=== PATIENT | male | born 1975 | race Caucasian/White ===

== ENCOUNTER 2018-05-02 12:31 | Emergency (ER) | payer BC, SELFPAY ==
[2018-05-02 12:36] VITALS: BP 171/99; PULSE 87; RESP 16; TEMP 36.9; O2SAT 96
[2018-05-02 13:00] VITALS: BP 184/112
[2018-05-02 13:01] VITALS: BP 180/100; PULSE 101
[2018-05-02 13:03] VITALS: RESP 16
[2018-05-02 13:05] VITALS: BP 173/110; BP 184/112; PULSE 101; PULSE 95
--- NOTE | 2018-05-02 13:40 | W.ED.GENAD ---
Discharge Plan Disposition Patient Disposition: HOME Condition: Good Discharge Details Chief Complaint: Dizzy/Sync Clinical Impression: Dizziness, Dehydration Primary Care Provider: Sameer Almaguer ED Provider: Janet Lynch Home Meds and New Rx's Prescriptions: Continue omeprazole magnesium [Prilosec OTC] 20 MG tablet,delayed release (DR/EC) 20 mg PO DAILY RF: 0 ibuprofen [Advil Liqui-Gel] 200 MG capsule 200 mg PO PRN PRNRF: 0 Discharge Instructions Instructions: Dehydration (ED), Dizziness (ED) Additional Instructions: Drink plenty fluids and get plenty of rest. Refrain from excessive daily alcohol use. You should receive a call from care management regarding follow-up with a primary care doctor for reevaluation and for outpatient MRI brain for reassessment of a nonspecific calcification noted on the CAT scan of your head today. Return immediately to the emergency department any worsening or new concerning symptoms. Discharge Data Discharge Date/Time-TO BE ENTERED AT DEPARTURE: 05/02/18 18:47 Discharge Physician: Janet Lynch Medical Decision Making <Janet Lynch DO - Last Filed: 05/02/18 22:41> Please see Dr. Sally Akbar's note for initial presentation, exam and plan. Patient is a 42 -year-old male history of GERD who presented with dizziness described as lightheadedness since yesterday. Also admitted to ringing in his left ear. He denied headache, neck pain, spinning sensation, fever, recent illness, vomiting or diarrhea. Patient admitted to drinking a sixpack of beer daily, and that he drank much more over the weekend. Upon endorsement, plan was for follow-up on EKG, reassessment after fluids, ambulation as well as CT head. Labs reviewed and note a white blood cell count of 13.25. Anion gap 12.3. Mild elevation of AST and ALT likely due to daily alcohol use. It was thought that his symptoms are likely due to dehydration. 1800 --IV fluids finished and patient is requesting to go home. Patient states he feels much better. Patient ambulated around the ED and has no c/o of dizziness, tinnitus and appears in no acute distress. EKG notes a rate of 65, sinus, incomplete right bundle branch block, left anterior fascicular block, T wave inversion in V1 and V2, no acute ST elevation or depression, QTc 432, QRS 100. No old EKG to compare. Chest x-ray negative. CT had noted a nonspecific 0.8 cm calcification anterior to the interpedicular fossa of unknown etiology. They recommended further evaluation with MRI brain. These results were discussed with patient. These may be likely incidental as patient has no complaints of headache, vomiting, no focal deficits. Patient states he has been seen by [facility] in the past. He is instructed to call them tomorrow morning to schedule follow-up appointment for reevaluation. Patient instructed to return here immediately with any worsening or new concerning symptoms. <Barbara Akbar MD - Last Filed: 05/04/18 10:56> Yasmeen Calix is a 42 y/o man with h/o GERD, heavy etoh use presenting to the emergency department with lightheadedness that only occurs while standing since yesterday morning, after he drank heavily two nights ago. Pt is very well and non-toxic appearing. Benign cardiopulmonary and neuro exams. Exam/hx not c/w PE, ACS, sepsis, acute aortic pathology, CVA, infection. Concern for dehydration, orthostatic lightheadedness, metabolic/lyte derangement, other. Doubt arrhythmia, given symptoms currently occuring with standing with no change in heart rhythm and symptoms resolve immediately when seated. Doubt intracranial process, given concurrent HTN will obtain CT head, also plan for screening labs, IVF hydration, EKG, CXR, CT head. Will monitor and reassess. Pt signed out to Dr. Lynch at time of shift change with CXR, CT head, EKG, reassessment pending. Medical Records Medical records reviewed: Yes I reviewed the patient's medical records. Lab Data Lab results reviewed: Yes I reviewed the patient's lab results. HPI <Janet Lynch DO - Last Filed: 05/02/18 22:41> General Date/Time Provider Initiated Documentation: 05/02/18 13:26. Related Data Home Medications Medication Instructions Recorded Confirmed ibuprofen [Advil Liqui-Gel] 200 mg PO PRN PRN 12/27/14 05/02/18 omeprazole magnesium [Prilosec OTC] 20 mg PO DAILY 12/27/14 05/02/18 Allergies Allergy/AdvReac Type Severity Reaction Status Date / Time No Known Allergies Allergy Unverified 05/02/18 12:38 <Barbara Akbar MD - Last Filed: 05/04/18 10:56> General Mode of arrival: ambulatory. Limitations to Documentation: no limitations. Information obtained by: patient, RN notes reviewed and old records reviewed. HPI Narrative: Yasmeen Calix is a 42 y/o man with h/o GERD presenting to the emergency department with lightheadedness with standing. Pt reports that symptoms began yesterday morning. He states that he typically drinks 6 beers per night, but two nights ago drank significantly more than that. Pt reports that yesterday morning when he woke up, he noticed that he felt lightheaded while he was standing. When he sat down, he would feel immediately improved and at baseline. Pt reports that this morning he felt much better than yesterday, but when he went to work he was standing for a pronged period and felt lightheaded again, which prompted him to come to ED. No syncope or fall, no LOC. He denies any accompanying symptoms: no pain, no palpitations, no n/v/d, no SOB, no cough, no weakness, no n/t. Feels otherwise in his usual state of health. He is seated on bed and states that he is currently asymptomatic. Has been eating and drinking normally. No recent illness. No recent travel. General Stated Complaint: Dizzy/Sync GANESH: 3 <Barbara Akbar MD - Last Filed: 05/04/18 10:56> Review of Systems Constitutional: denies fevers Eyes: denies eye pain ENT: denies facial pain, dental pain, sore throat Cardiovascular: denies chest pain, edema, reports lightheadedness Respiratory: denies SOB, cough GI: denies abdominal pain, vomiting, diarrhea : denies flank pain MSK: denies back pain, neck pain, arthralgias, myalgias Skin: denies rash Neuro: denies headaches, n/t, focal weakness <Barbara Akbar MD - Last Filed: 05/04/18 10:56> Narrative Exam Narrative: Constitutional: well and [id number], pleasant, conversing normally HENT: head atraumatic, normocephalic normal inspection, mucous membranes moist Eyes: conjunctiva normal, sclera normal, pupils 3mm b/l Neck: no stridor, normal ROM, trachea midline Chest: normal inspection Resp: normal work of breathing, LCTAB Cardio: normal rate, normal rhythm, no murmur appreciated Back: normal inspection, no rash Skin: warm, dry, normal color, no rash Neuro: alert, not altered, grossly non-focal, normal tone Ext: no edema, no posteror calf TTP Psych: normal mood, normal affect, normal behavior <Barbara Akbar MD - Last Filed: 05/04/18 10:56> Vital Signs Temperature 36.9 C 05/02/18 12:36 Pulse 87 05/02/18 12:36 Respiratory Rate 16 05/02/18 12:36 Blood Pressure 171/99 H 05/02/18 12:36 Pulse Oximetry 96 05/02/18 12:36 Temperature 36.9 C 05/02/18 12:36 Temperature Source Temporal Artery Scan 05/02/18 12:36 Pulse 95 H 05/02/18 13:05 Respiratory Rate 16 05/02/18 13:03 Respiratory Effort 05/02/18 13:03 Respiratory Depth Normal 05/02/18 13:03 Respiratory Pattern Normal 05/02/18 13:03 Blood Pressure 173/110 H 05/02/18 13:05 Blood Pressure Position Sitting 05/02/18 12:36 Pulse Oximetry 96 05/02/18 12:36 Oxygen Delivery Method Room Air 05/02/18 12:36 Oxygen Flow Rate 0 05/02/18 12:36 Pain Level 0 05/02/18 12:36 Sign Out <Jnaet Lynch DO - Last Filed: 05/02/18 22:41> Sign Out Data: Sign Out Comment: Patient signed out to Dr. Janet Lynch at time of shift change with EKG, final chest x-ray reading, second liter of fluid, CT head, reassessment pending. Last updated by Barbara Akbar MD at 05/02/18 16:27
[2018-05-02 15:17] LABS: Abs Immature Grans 0.03 k/cumm (0.0-0.09); Absolute Basophil Count 0.11 k/cumm (0.0-0.2); Absolute Eosinophil Count 0.21 k/cumm (0.0-0.7); Absolute Lymphocyte Count 2.33 k/cumm (1.2-3.4); Absolute Monocyte Count 1.01 k/cumm (0.11-0.7); Basophils % 0.8; Eosinophils % 1.6; HCT 49.9 % (40.0-50.0); Immature Grans % 0.2; Lymphocytes % 17.6; Mean Corp. HGB Concentration 34.1 g/dL (32.0-36.0); Mean Corpuscular Hemoglobin 29.2 pg (27.0-33.0); Mean Corpuscular Volume 85.6 fL (80-95); Mean Platelet Volume 9.7 fL (8.0-11.0); Monocytes % 7.6; Neutrophils % 72.2; Platelet Count 273 x1000/uL (130-400); RBC 5.83 m/cumm (4.50-6.00); RBC Distribution Width 15.9 % (11.8-14.1); White Blood Cell Count 13.25 k/cumm (4.4-10.8)
[2018-05-02 15:20] LABS: Absolute Neutrophil Count 9.57 k/cumm (1.2-6.7)
[2018-05-02 15:22] VITALS: BP 155/111
--- NOTE | 2018-05-02 15:28 | DI.RAD_ITS ---
SYMPTOMS/DIAGNOSIS: NEAR SYNCOPE CHEST X-RAY, PA AND LATERAL: No priors. The heart is normal in size. The lungs are clear. The mediastinal structures and pleura appear intact. IMPRESSION: Normal chest.
[2018-05-02 15:29] LABS: ALT 82 U/L (12-78); AST 55 U/L (15-37); Albumin 4.1 g/dL (3.4-5.0); Alkaline Phosphatase 88 U/L (46-116); Anion Gap 12.3 mmol/L (3-11); BUN 6 mg/dL (7-18); Bilirubin, Total 0.7 mg/dL (0.2-1.0); CO2 26.7 mmol/L (21.0-32.0); CREATININE 0.82 mg/dL (0.70-1.30); Calcium 9.9 mg/dL (8.5-10.1); Chloride 100 mmol/L (98-107); Glucose 87 mg/dL (70-100); Magnesium 2.1 mg/dL (1.8-2.4); Potassium 4.3 mmol/L (3.5-5.1); Sodium 139 mmol/L (136-145); Total Protein 8.9 g/dL (6.4-8.2)
[2018-05-02] MEDS: Normal Saline 1,000 ML 1000 ML IV ×2 (15:44→16:30)
--- NOTE | 2018-05-02 16:56 | DI.CT_ITS ---
SYMPTOMS/DIAGNOSIS: LIGHTHEADEDNESS, HIGH BLOOD PRESSURE CT BRAIN, NONCONTRAST: No priors. There is normal sorensen-white matter differentiation. The ventricles are intact. The basilar cisterns are patent. No intracranial hemorrhage, infarct, midline shift or mass effect is identified. There is a 0.8 cm calcification anterior to the interpeduncular fossa in the region of the basilar tip. There is mucosal thickening in the maxillary sinuses, ethmoid air cells and sphenoid sinuses. No fluid levels are seen. The mastoid air cells are well pneumatized. The calvarium is intact. IMPRESSION: 1. No acute intracranial process. 2. A 0.8 cm calcification anterior to the interpeduncular fossa. This is of uncertain clinical significance. Its proximity to the basilar tip cannot exclude an aneurysm. MRI without and with contrast should be considered for further evaluation.
--- NOTE | 2018-05-02 17:18 | DI.VRAD_ITS ---
EXAM: CT Head Without Intravenous Contrast CLINICAL HISTORY: 42 years old, male; Signs and symptoms; Other: Lightheadedness, high blood pressure TECHNIQUE: Axial computed tomography images of the head/brain without intravenous contrast. Coronal and sagittal reformatted images were created and reviewed. COMPARISON: No relevant prior studies available. FINDINGS: Brain: Nonspecific 0.8 cm calcification anterior to the interpeduncular fossa possibly within close anatomic proximity to the basilar tip. No intracranial hemorrhage or extra-axial fluid collection. No evidence of mass effect or midline shift. Arteaga-white matter differentiation is normal. Ventricles: Ventricles and sulci are normal. Bones/joints: No acute osseus lesions or fractures. Soft tissues: Unremarkable. Sinuses: Mild mucosal thickening of the maxillary sinuses. Mastoid air cells: Mastoid air cells are clear. IMPRESSION: 1. No acute intracranial findings. 2. Nonspecific 0.8 cm calcification anterior to the interpeduncular fossa of unknown etiology. Recommend further evaluation with MRI brain with and without contrast. Dictated and Authenticated by: Kenneth Solis MD. Ordering:LUCILLE LEW MD
--- NOTE | 2018-05-02 18:43 | ED.GENADUL_ITS ---
Discharge Plan Disposition Patient Disposition: HOME Condition: Good Discharge Details Chief Complaint: Dizzy/Sync Clinical Impression: Dizziness, Dehydration Primary Care Provider: Sameer Almaguer ED Provider: Janet Lynch Home Meds and New Rx's Prescriptions: Continue omeprazole magnesium [Prilosec OTC] 20 MG tablet,delayed release (DR/EC) 20 mg PO DAILY RF: 0 ibuprofen [Advil Liqui-Gel] 200 MG capsule 200 mg PO PRN PRNRF: 0 Discharge Instructions Instructions: Dehydration (ED), Dizziness (ED) Additional Instructions: Drink plenty fluids and get plenty of rest. Refrain from excessive daily alcohol use. You should receive a call from care management regarding follow-up with a primary care doctor for reevaluation and for outpatient MRI brain for reassessment of a nonspecific calcification noted on the CAT scan of your head today. Return immediately to the emergency department any worsening or new concerning symptoms. Discharge Data Discharge Date/Time-TO BE ENTERED AT DEPARTURE: 05/02/18 18:47 Discharge Physician: Janet Lynch Medical Decision Making <Janet Lynch DO - Last Filed: 05/02/18 22:41> Please see Dr. Sally Akbar's note for initial presentation, exam and plan. Patient is a 42 -year-old male history of GERD who presented with dizziness described as lightheadedness since yesterday. Also admitted to ringing in his left ear. He denied headache, neck pain, spinning sensation, fever, recent illness, vomiting or diarrhea. Patient admitted to drinking a sixpack of beer daily, and that he drank much more over the weekend. Upon endorsement, plan was for follow-up on EKG, reassessment after fluids, ambulation as well as CT head. Labs reviewed and note a white blood cell count of 13.25. Anion gap 12.3. Mild elevation of AST and ALT likely due to daily alcohol use. It was thought that his symptoms are likely due to dehydration. 1800 --IV fluids finished and patient is requesting to go home. Patient states he feels much better. Patient ambulated around the ED and has no c/o of dizziness, tinnitus and appears in no acute distress. EKG notes a rate of 65, sinus, incomplete right bundle branch block, left anterior fascicular block, T wave inversion in V1 and V2, no acute ST elevation or depression, QTc 432, QRS 100. No old EKG to compare. Chest x-ray negative. CT had noted a nonspecific 0.8 cm calcification anterior to the interpedicular fossa of unknown etiology. They recommended further evaluation with MRI brain. These results were discussed with patient. These may be likely incidental as patient has no complaints of headache, vomiting, no focal deficits. Patient states he has been seen by [facility] in the past. He is instructed to call them tomorrow morning to schedule follow-up appointment for reevaluation. Patient instructed to return here immediately with any worsening or new concerning symptoms. <Barbara Akbar MD - Last Filed: 05/04/18 10:56> Yasmeen Calix is a 42 y/o man with h/o GERD, heavy etoh use presenting to the emergency department with lightheadedness that only occurs while standing since yesterday morning, after he drank heavily two nights ago. Pt is very well and non-toxic appearing. Benign cardiopulmonary and neuro exams. Exam/hx not c/w PE , ACS, sepsis, acute aortic pathology, CVA, infection. Concern for dehydration, orthostatic lightheadedness, metabolic/lyte derangement, other. Doubt arrhythmia , given symptoms currently occuring with standing with no change in heart rhythm and symptoms resolve immediately when seated. Doubt intracranial process , given concurrent HTN will obtain CT head, also plan for screening labs, IVF hydration, EKG, CXR, CT head. Will monitor and reassess. Pt signed out to Dr. Lynch at time of shift change with CXR, CT head, EKG, reassessment pending. Medical Records Medical records reviewed: Yes I reviewed the patient's medical records. Lab Data Lab results reviewed: Yes I reviewed the patient's lab results. HPI <Janet Lynch DO - Last Filed: 05/02/18 22:41> General Date/Time Provider Initiated Documentation: 05/02/18 13:26 . Related Data Home Medications Medication Instructions Recorded Confirmed ibuprofen [Advil Liqui-Gel] 200 mg PO PRN PRN 12/27/14 05/02/18 omeprazole magnesium [Prilosec OTC] 20 mg PO DAILY 12/27/14 05/02/18 Allergies Allergy/AdvReac Type Severity Reaction Status Date / Time No Known Allergies Allergy Unverified 05/02/18 12:38 <Barbara Akbar MD - Last Filed: 05/04/18 10:56> General Mode of arrival: ambulatory . Limitations to Documentation: no limitations . Information obtained by: patient, RN notes reviewed and old records reviewed . HPI Narrative: Yasmeen Calix is a 42 y/o man with h/o GERD presenting to the emergency department with lightheadedness with standing. Pt reports that symptoms began yesterday morning. He states that he typically drinks 6 beers per night, but two nights ago drank significantly more than that. Pt reports that yesterday morning when he woke up, he noticed that he felt lightheaded while he was standing. When he sat down, he would feel immediately improved and at baseline. Pt reports that this morning he felt much better than yesterday, but when he went to work he was standing for a pronged period and felt lightheaded again, which prompted him to come to ED. No syncope or fall, no LOC. He denies any accompanying symptoms: no pain, no palpitations, no n/v/d, no SOB, no cough, no weakness, no n/t. Feels otherwise in his usual state of health. He is seated on bed and states that he is currently asymptomatic. Has been eating and drinking normally. No recent illness. No recent travel. General Stated Complaint: Dizzy/Sync GANESH: 3 <Barbara Akbar MD - Last Filed: 05/04/18 10:56> Review of Systems Constitutional: denies fevers Eyes: denies eye pain ENT: denies facial pain, dental pain, sore throat Cardiovascular: denies chest pain, edema, reports lightheadedness Respiratory: denies SOB, cough GI: denies abdominal pain, vomiting, diarrhea : denies flank pain MSK: denies back pain, neck pain, arthralgias, myalgias Skin: denies rash Neuro: denies headaches, n/t, focal weakness <Barbara Akbar MD - Last Filed: 05/04/18 10:56> Narrative Exam Narrative: Constitutional: well and [id number], pleasant, conversing normally HENT: head atraumatic, normocephalic normal inspection, mucous membranes moist Eyes: conjunctiva normal, sclera normal, pupils 3mm b/l Neck: no stridor, normal ROM, trachea midline Chest: normal inspection Resp: normal work of breathing, LCTAB Cardio: normal rate, normal rhythm, no murmur appreciated Back: normal inspection, no rash Skin: warm, dry, normal color, no rash Neuro: alert, not altered, grossly non-focal, normal tone Ext: no edema, no posteror calf TTP Psych: normal mood, normal affect, normal behavior <Barbara Akbar MD - Last Filed: 05/04/18 10:56> Vital Signs Temperature 36.9 C 05/02/18 12:36 Pulse 87 05/02/18 12:36 Respiratory Rate 16 05/02/18 12:36 Blood Pressure 171/99 H 05/02/18 12:36 Pulse Oximetry 96 05/02/18 12:36 Temperature 36.9 C 05/02/18 12:36 Temperature Source Temporal Artery Scan 05/02/18 12:36 Pulse 95 H 05/02/18 13:05 Respiratory Rate 16 05/02/18 13:03 Respiratory Effort 05/02/18 13:03 Respiratory Depth Normal 05/02/18 13:03 Respiratory Pattern Normal 05/02/18 13:03 Blood Pressure 173/110 H 05/02/18 13:05 Blood Pressure Position Sitting 05/02/18 12:36 Pulse Oximetry 96 05/02/18 12:36 Oxygen Delivery Method Room Air 05/02/18 12:36 Oxygen Flow Rate 0 05/02/18 12:36 Pain Level 0 05/02/18 12:36 Sign Out <Janet Lynch DO - Last Filed: 05/02/18 22:41> Sign Out Data: Sign Out Comment: Patient signed out to Dr. Janet Lynch at time of shift change with EKG, final chest x-ray reading, second liter of fluid, CT head, reassessment pending. Last updated by Barbara Akbar MD at 05/02/18 16:27
--- NOTE | 2018-05-03 08:49 | PDOC.ERCMPRO ---
Care Management Progress Note 05/03-Dr. Lynch requested assistance with a PCP (Dr. Almaguer) f/u in one week for dizziness, incidental finding on CT-needs MRI. Referral faxed to [facility] today.
--- NOTE | 2018-05-03 09:20 | CMPROGNOTE_ITS ---
Care Management Progress Note 05/03-Dr. Lynch requested assistance with a PCP (Dr. Almaguer) f/u in one week for dizziness, incidental finding on CT-needs MRI. Referral faxed to [facility] today.
--- NOTE | 2018-05-11 10:06 | NUR.NOTE ---
Nursing Note: Received notice that patient has an appointment with Andreea Burns at [facility] on May 18, at 1515.
== END 2018-05-02 18:47 | disposition home or self-care (01) ==
PROVIDERS: Student in an Organized Health Care Education/Training Program; Emergency Provider Physician Assistant; PCP Internal Medicine
DX: R42 Dizziness and giddiness (principal); E86.0 Dehydration; R91.8 Other nonspecific abnormal finding of lung field; F10.10 Alcohol abuse, uncomplicated
CPT/HCPCS: 36415; 80053; 93005; 96360; 99284; 70450; 71046; 83735; 85025; 93010

== ENCOUNTER 2018-07-29 21:00 | Outpatient (REF) | payer BC, SELFPAY ==
[2018-07-29 21:18] LABS: HCT 49.2 % (40.0-50.0); HGB 16.6 g/dL (13.5-17.5); Mean Corp. HGB Concentration 33.7 g/dL (32.0-36.0); Mean Corpuscular Hemoglobin 29.3 pg (27.0-33.0); Mean Corpuscular Volume 86.9 fL (80-95); Mean Platelet Volume 10.7 fL (8.0-11.0); Platelet Count 337 x1000/uL (130-400); RBC 5.66 m/cumm (4.50-6.00); RBC Distribution Width 14.9 % (11.8-14.1); White Blood Cell Count 13.54 k/cumm (4.4-10.8)
[2018-07-29 21:36] LABS: ALT 38 U/L (12-78); AST 31 U/L (15-37); Albumin 4.2 g/dL (3.4-5.0); Alkaline Phosphatase 87 U/L (46-116); BUN 9 mg/dL (7-18); Bilirubin, Total 0.5 mg/dL (0.2-1.0); CREATININE 1.06 mg/dL (0.70-1.30); Calcium 9.6 mg/dL (8.5-10.1); Chloride 102 mmol/L (98-107); Cholesterol 257 mg/dL (50-200); Glucose 88 mg/dL (70-100); HDL Cholesterol 59 mg/dL (40-60); LDL CHOLESTEROL 172 mg/dL (<100); Potassium 4.4 mmol/L (3.5-5.1); Sodium 139 mmol/L (136-145); Total Protein 8.6 g/dL (6.4-8.2); Triglyceride 148 mg/dL (30-150)
== END 2018-07-29 21:20 ==
LOC: NCHCN 21:00
PROVIDERS: PCP Nurse Practitioner Family; Visit Provider Nurse Practitioner Family
DX: Z00.00 Encounter for general adult medical examination without abnormal findings (principal); I10 Essential (primary) hypertension
CPT/HCPCS: 80053; 80061; 83721; 85027

== ENCOUNTER 2018-08-22 01:00 | Outpatient (CLI) | payer BC, SELFPAY ==
--- NOTE | 2018-08-22 09:15 | DI.MRI_ITS ---
SYMPTOM/DIAGNOSIS: F/U ABNL CT SCAN, DIZZINESS, ? ANEURYSM MRA OF [place] OF [place]: Routine MRA of the [place] of [place] was performed. The distal internal carotid arteries are unremarkable. They show no evidence of occlusion or aneurysm. No significant stenosis is seen. The anterior cerebral arteries are unremarkable without evidence of occlusion or aneurysm. No significant stenosis is seen. The middle cerebral arteries are unremarkable without evidence of occlusion or aneurysm. No significant stenosis is seen. The posterior cerebral arteries are unremarkable without evidence of occlusion or aneurysm. No significant stenosis is present. The distal portions of the vertebral arteries are unremarkable without evidence of occlusion, aneurysm or significant stenosis. The visualized basilar artery is unremarkable without evidence of occlusion, stenosis or aneurysm. There is again abnormal signal in the interpeduncular fossa near the tip of the basal artery. No enhancement is seen in or around this region. IMPRESSION: Abnormal signal seen in the interpeduncular fossa adjacent to the basilar tip. In conjunction with the CT of the head, differential considerations include aneurysm, lipoma, neoplasm or other intracranial mass. MRI of the brain without and with contrast should be considered for further evaluation.
== END 2018-08-22 01:20 ==
PROVIDERS: PCP Nurse Practitioner Family; Visit Provider Nurse Practitioner Family
DX: R42 Dizziness and giddiness (principal); R94.02 Abnormal brain scan
CPT/HCPCS: 70544

== ENCOUNTER 2020-08-05 10:56 | Outpatient (REF) | payer BC, SELFPAY ==
[2020-08-06 12:36] LABS: COVID-19 RT-PCR UVMMC Result Negative (Negative)
== END 2020-08-05 11:16 ==
LOC: NCHCN 10:56
PROVIDERS: PCP Nurse Practitioner Family; Visit Provider Nurse Practitioner Family
DX: Z20.822 Contact with and (suspected) exposure to COVID-19 (principal)
CPT/HCPCS: U0003

== ENCOUNTER 2020-08-09 19:37 | Outpatient (REF) | payer BC, SELFPAY ==
[2020-08-10 14:40] LABS: COVID-19 RT-PCR UVMMC Result Negative (Negative)
== END 2020-08-09 19:38 | disposition home or self-care (01) ==
LOC: NCHCN 19:37
PROVIDERS: PCP Nurse Practitioner Family; Visit Provider Nurse Practitioner Family
DX: Z20.822 Contact with and (suspected) exposure to COVID-19 (principal)
CPT/HCPCS: U0003

== ENCOUNTER 2021-06-04 17:35 | Outpatient (REF) | payer BC, SELFPAY ==
[2021-06-04 22:45] LABS: ALT 41 U/L (16-63); AST 30 U/L (15-37); Anion Gap 11.3 mmol/L (3-11); BUN 9 mg/dL (7-18); CO2 28.7 mmol/L (21.0-32.0); Calcium 9.9 mg/dL (8.5-10.1); Calculated LDL 108 mg/dL (<100); Chloride 102 mmol/L (98-107); Cholesterol 189 mg/dL (<200); Glucose 102 mg/dL (74-106); HDL Cholesterol 56 mg/dL (40-60); Potassium 4.2 mmol/L (3.5-5.1); Sodium 142 mmol/L (136-145); Triglyceride 129 mg/dL (<150)
== END 2021-06-04 17:36 | disposition home or self-care (01) ==
LOC: NCHCN 17:35
PROVIDERS: PCP Nurse Practitioner Family; Visit Provider Nurse Practitioner Family
DX: E78.5 Hyperlipidemia, unspecified (principal); I10 Essential (primary) hypertension
CPT/HCPCS: 80048; 80061; 84450; 84460

== ENCOUNTER 2023-01-20 17:34 | Outpatient (REF) | payer BC, SELFPAY ==
[2023-01-20 16:47] LABS: HCT 49.9 % (40.0-50.0); MCH 29.8 pg (27.0-33.0); MCHC 34.1 % (32.0-36.0); MCV 88 fL (80-95); MPV 10.9 fL (8.0-11.0); Platelet Count 313 10^3/uL (130-400); RDW 13.3 % (11.8-14.1); RDW-SD 42.6 fL; WBC 10.21 10^3/uL (4.4-10.8)
[2023-01-20 17:35] LABS: ALT 45 U/L (16-63); AST 36 U/L (15-37); Alkaline Phosphatase 90 U/L (46-116); Anion Gap 15.3 mmol/L (3-11); BUN 4 mg/dL (7-18); Bilirubin, Total 0.2 mg/dL (0.2-1.0); CO2 26.7 mmol/L (21.0-32.0); CREATININE 0.8 mg/dL (0.70-1.30); Calcium 9.4 mg/dL (8.5-10.1); Calculated LDL 125 mg/dL (<100); Chloride 98 mmol/L (98-107); Cholesterol 243 mg/dL (<200); Estimated GFR 111.22 (mL/min/1.73m2); Glucose 82 mg/dL (74-106); HDL Cholesterol 47 mg/dL (40-60); Potassium 3.4 mmol/L (3.5-5.1); Sodium 140 mmol/L (136-145); Total Protein 8.3 g/dL (6.4-8.2); Triglyceride 355 mg/dL (<150)
== END 2023-01-20 17:35 | disposition home or self-care (01) ==
LOC: NCHCN 17:34
PROVIDERS: PCP Nurse Practitioner Family; Visit Provider Nurse Practitioner Family
DX: E78.5 Hyperlipidemia, unspecified (principal); K92.1 Melena
CPT/HCPCS: 80053; 80061; 85027

== ENCOUNTER 2023-06-22 19:57 | Outpatient (REF) | payer BC, SELFPAY ==
[2023-06-22 14:57] LABS: ALT 47 U/L (16-63); AST 49 U/L (15-37); Albumin 3.9 g/dL (3.4-5.0); Alkaline Phosphatase 88 U/L (46-116); Anion Gap 9.1 mmol/L (3-11); BUN 6 mg/dL (7-18); Bilirubin, Total 0.3 mg/dL (0.2-1.0); CO2 27.9 mmol/L (21.0-32.0); Calcium 9.5 mg/dL (8.5-10.1); Calculated LDL 72 mg/dL (<100); Chloride 103 mmol/L (98-107); Cholesterol 204 mg/dL (<200); Estimated GFR 94.59 (mL/min/1.73m2); Glucose 118 mg/dL (74-106); HDL Cholesterol 55 mg/dL (40-60); Potassium 4.3 mmol/L (3.5-5.1); Sodium 140 mmol/L (136-145); Total Protein 8.1 g/dL (6.4-8.2); Triglyceride 385 mg/dL (<150)
== END 2023-06-22 19:58 | disposition home or self-care (01) ==
LOC: NCHCN 19:57
PROVIDERS: PCP Nurse Practitioner Family; Visit Provider Nurse Practitioner Family
DX: E78.5 Hyperlipidemia, unspecified (principal)
CPT/HCPCS: 80053; 80061

== ENCOUNTER 2023-12-23 14:59 | Outpatient (REF) | payer BC, SELFPAY ==
[2023-12-23 15:36] LABS: COMMENT (LAB VIEW ONLY) < 13.00 mg/dL
== END 2023-12-23 15:00 | disposition home or self-care (01) ==
LOC: NCHCN 14:59
PROVIDERS: PCP Nurse Practitioner Family; Visit Provider Nurse Practitioner Family
DX: I10 Essential (primary) hypertension (principal)
CPT/HCPCS: 82043; 82570

== ENCOUNTER 2024-06-23 16:46 | Outpatient (REF) | payer BC, SELFPAY ==
[2024-06-23 15:56] LABS: HCT 45.5 % (40.0-50.0); HGB 16.1 g/dL (13.5-17.5); MCH 32.3 pg (27.0-33.0); MCHC 35.4 % (32.0-36.0); MCV 91 fL (80-95); MPV 10.4 fL (8.0-11.0); Platelet Count 313 10^3/uL (130-400); RBC 4.99 10^6/uL (4.36-5.78); RDW 12.8 % (11.8-14.1); RDW-SD 42.5 fL; WBC 10.56 10^3/uL (4.4-10.8)
[2024-06-23 16:46] LABS: ALT 46 U/L (16-63); AST 47 U/L (15-37); Albumin 4.2 g/dL (3.4-5.0); Alkaline Phosphatase 91 U/L (46-116); Anion Gap 15.2 mmol/L (3-11); BUN 6 mg/dL (7-18); Bilirubin, Total 0.46 mg/dL (0.2-1.0); CO2 25.8 mmol/L (21.0-32.0); Calcium 9.6 mg/dL (8.5-10.1); Calculated LDL 74 mg/dL (<100); Chloride 103 mmol/L (98-107); Cholesterol 198 mg/dL (<200); Folate 4.8 ng/mL (8.6-20.0); Glucose 93 mg/dL (74-106); HDL Cholesterol 59 mg/dL (40-60); Magnesium 2.1 mg/dL (1.8-2.4); Potassium 3.8 mmol/L (3.5-5.1); Sodium 144 mmol/L (136-145); Total Protein 8.4 g/dL (6.4-8.2); Triglyceride 328 mg/dL (<150); Vitamin B12 439 pg/mL (193-986)
--- OUTSIDE RECORDS SUMMARY | 2024-06-23 16:48 | XMS_ITS | Encounter Summary ---
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 Name Role Phone Unavailable Primary Care Provider Unavailabl e Encounter Details Date Type Department Care Team (Late st Contact Info) Description 05/02/2018 Ancillary Procedure Radiology Library at [facility] [place] [id number] Andreea Burns APRN [address] [place] [address] Social History Tobacco Use Types Packs/Day Years Used Date Smoking Tobacco: Every Day Cigarettes Sex and Gender Information Value Date Recorded Sex Assigned at Not on file Gender Identity Not on file Sexual Orientation Not on file documented as of this encounter Plan of Treatment Not on file documented as of this encounter Procedures Procedure Name Priority Date/Time Associated Diagnosis Comments FILM LIBRARY STORAGE ONLY CT HEAD Routine 05/02/2018 12:00 AM EDT documented in this encounter Results * Film Library- Storage Only CT Head (05/02/2018 12:00 AM EDT) Narrative ARIELLE - 08/30/2018 2:04 PM EST This exam is for storage only and is auto-finalizing. Andreea Burns APRN IMG FILM LIBRARY ORD ERABLES ARIELLE [place] documented in this encounter Visit Diagnoses Not on filedocumented in this encounter
--- OUTSIDE RECORDS SUMMARY | 2024-06-23 16:48 | XMS_ITS | Encounter Summary ---
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 Role Phone Unavailable Primary Care Provider Unavailabl e Reason for Visit * Reason Comments Follow-up partial amputation r ight ring and long finger Encounter Details Date Type Department Care Team (Late st Contact Info) Description 02/19/2016 9:15 AM EDT Office Visit Plastic Surgery at [facility] [address] [place] [address] Scout La MD [facility] [place] [address] Finger amputation, traumatic, subsequent encounter Social History Tobacco Use Types Packs/Day Years Used Date Smoking Tobacco: Never Assessed Sex and Gender Information Value Date Recorded Sex Assigned at Not on file Gender Identity Not on file Sexual Orientation Not on file documented as of this encounter Progress Notes * Orestes Kruegerbreanna Soriano - 02/19/2016 9:15 AM EDT Plastic Surgery Post Op Note Reason for visit: F/U status post procedure Date of injury: 01/09/16 Injury(s): Distal amputation of the index and ring finger digits of the right hand s/p lawnmower injury. Complications: None reported Pain: 0/10 HPI: Pt returns in follow up s/p distal amputation of index and ring fingers following a lawnmower injury. He reports that there is no work available to him with his current healing status. Examination: Patient is alert, conversant, comfortable, ambulating Right long and ring finger tip partial amputation, decreased dswelling, 1cm scabbing at tip, no bone exposed No signs of infection Impression: Yasmeen Calix is a 40 y.o. male who was seen today for follow-up after the above injury.Skin flaps with some delayed healing. We discussed continuing local wound care vs surgical treatment to close the areas. He would prefer to continue conservative management. We discussed his work status, he may continue to work with no use of right hand. Hand must be kept clean and dry. Plan: 1. Follow up 2. Ok to shower, clean with soap and water. Pat dry. No soaking or swimming in still water. 3. Wrap fingers with single layer of xeroform, gauze and wrap with coban. Change once daily, ok to change more frequently if needed. I, Tess Krueger, am acting as scribe for Dr La. All work documented was performed by Dr La. ???I performed the above scribed service and agree with the accuracy of the note?? Dr. Scout La. documented in this encounter Plan of Treatment Not on file documented as of this encounter Visit Diagnoses Diagnosis Finger amputation, traumatic, subsequent encounter documented in this encounter
--- OUTSIDE RECORDS SUMMARY | 2024-06-23 16:48 | XMS_ITS | Encounter Summary ---
Author Organization [facility]1983 Address [facility] [place] [address] Care Team Providers Care Parachute Line Tier Name Role Phone Unavailable Primary Care Provider Unavailabl e Reason for Visit * Reason Comments Advice Only partial amputation r ight long and ring finger * Consultation (Routine) - Specialty Diagnoses / Procedures Referred By Reuben valladares Referred To Contact Plastic Surgery Diagnoses partial amputation right hand middle ring finger amputation doi 01/08/16 Procedures NEW PATIENT Scout La MD [facility] PLASTIC SURGERY [place] [id number] Scout La MD [facility] [place] [address] Referral ID Status Reason Start Date Expiration Date V isits Requested Visits Authorized [id number] 01/15/2016 01/14/2017 1 1 Encounter Details Date Type Department Care Team (Late st Contact Info) Description 01/15/2016 11:15 AM EDT Office Visit Plastic Surgery at [facility] [address] [place] [address] Scout La MD [facility] [place] [address] Amputation finger, initial encounter Social History Tobacco Use Types Packs/Day Years Used Date Smoking Tobacco: Never Assessed Sex and Gender Information Value Date Recorded Sex Assigned at Not on file Gender Identity Not on file Sexual Orientation Not on file documented as of this encounter Patient Instructions * Patient Instructions* Tess Krueger - 01/15/2016 11:15 AM EDT Plan: 1. Follow up 2 weeks 2. Ok to shower, clean with soap and water. Pat dry. No soaking or swimming in still water. 3. Wrap fingers with single layer of xeroform, gauze and wrap with coban. Change once daily, ok to change more frequently if needed. documented in this encounter Progress Notes * Scout La MD - 01/15/2016 11:15 AM EDT Plastic Surgery Post Op Note Reason for visit: F/U status post procedure Date of injury: 01/09/16 Injury(s): Distal amputation of the index and ring finger digits of the right hand s/p lawnmower injury. Complications: None reported Pain: 0/10 HPI: Pt returns in follow up s/p distal amputation of index and ring fingers following a lawnmower injury. A bedside revision amputation was performed in the ED by surgery resident. He reports no pain unless his fingers are hit. Examination: Patient is alert, conversant, comfortable, ambulating Right index and ring finger tip partial amputation, moderate swelling, skin flaps ecchymotic. No signs of infection Impression: Yasmeen Calix is a 40 y.o. male who was seen today for follow-up after the above injury.Discussed continued wound care, I advised that he will need to allow more time for his swelling to resolve. Discussed coban dressing to control edema. Plan: 1. Follow up 2 weeks 2. Ok to shower, clean with soap [...] as of this encounter Visit Diagnoses Diagnosis Amputation finger, initial encounter documented in this encounter
--- OUTSIDE RECORDS SUMMARY | 2024-06-23 16:48 | XMS_ITS | Referral Summary ---
Author Organization [facility] Address [address] [place] [address] Care Team Providers Care Grinder Hand Name Role Phone Unavailable Primary Care Provider Unavailabl e Social History Tobacco Use Types Packs/Day Years Used Date Smoking Tobacco: Never Assessed Interpersonal Safety Answer Date Record ed Physically Hurt Never 08/06/2020 Verbally Threaten Not on file 08/06/2020 Sex and Gender Information Value Date Recorded Sex Assigned at Not on file Legal Sex Male 13:03 EST Gender Identity Not on file Sexual Orientation Not on file Plan of Treatment Not on file
--- OUTSIDE RECORDS SUMMARY | 2024-06-23 16:48 | XMS_ITS | Encounter Summary ---
Author Organization [facility] Address [facility] [place] [address] Care Team Providers Care Armed Guard Name Role Phone Unavailable Primary Care Provider Unavailabl e Reason for Visit * Reason Comments Follow-up partial amputation o f right ring and middle fingers Encounter Details Date Type Department Care Team (Late st Contact Info) Description 01/29/2016 7:45 AM EDT Office Visit Plastic Surgery at [facility] [address] [place] [address] Scout Polk MD [facility] [place] [address] Finger amputation, traumatic, subsequent encounter Social History Tobacco Use Types Packs/Day Years Used Date Smoking Tobacco: Never Assessed Sex and Gender Information Value Date Recorded Sex Assigned at Not on file Gender Identity Not on file Sexual Orientation Not on file documented as of this encounter Patient Instructions * Patient Instructions* Tess Krueger - 01/29/2016 7:45 AM EDT Plan: 1. Follow up 3 weeks 2. Ok to shower, clean with soap and water. Pat dry. No soaking or swimming in still water. 3. Wrap fingers with single layer of xeroform, gauze and wrap with coban. Change once daily, ok to change more frequently if needed. documented in this encounter Progress Notes * Tess Krueger - 01/29/2016 7:45 AM EDT Plastic Surgery Post Op Note Reason for visit: F/U status post procedure Date of injury: 01/09/16 Injury(s): Distal amputation of the index and ring finger digits of the right hand s/p lawnmower injury. Complications: None reported Pain: 0/10 HPI: Pt returns in follow up s/p distal amputation of index and ring fingers following a lawnmower injury. He reports he has been well. He appreciates pain only when fingers are touched. Examination: Patient is alert, conversant, comfortable, ambulating [...] management. We discussed his work status, he will need to avoid direct pressure to the wounds and should keep the areas clean and dry. Plan: 1. Follow up 3 weeks 2. Ok to shower, clean with soap and water. Pat dry. No soaking or swimming in still water. 3. Wrap fingers with single layer of xeroform, gauze and wrap with coban. Change once daily, ok to change more frequently if needed. I, Nicci Davey, am acting as scribe for Dr. Polk. All work documented was performed by Dr. Polk. ???I performed the above scribed service and agree with the accuracy of the note?? SCOUT POLK MD. documented in this encounter Plan of Treatment Not on file documented as of this encounter Visit Diagnoses Diagnosis Finger amputation, traumatic, subsequent encounter documented in this encounter
--- OUTSIDE RECORDS SUMMARY | 2024-06-23 16:48 | XMS_ITS | Encounter Summary ---
Author Organization [facility] [place] [address] Care Team Providers Care Motorcycle Mechanic Apprentice Name Role Phone Unavailable Primary Care Provider Unavailabl e Encounter Details Date Type Department Care Team (Latest Contact Info) Description 01/08/2016 - 01/08/2016 11:54 PM EDT Hospital Encounter Radiology Library at [facility] [place] [place] [address] Discharge Disposition: Home Social History Tobacco Use Types Packs/Day Years Used Date Smoking Tobacco: Never Assessed Sex and Gender Information Value Date Recorded Sex Assigned at Not on file Gender Identity Not on file Sexual Orientation Not on file documented as of this encounter Medications at Time of Discharge Medication Sig Dispensed Refills Start Date End Date omeprazole (PRILOSEC) 20 mg Capsule, Delayed Release(E.C.) Take 20 mg by mouth daily. cephalexin (KEFLEX) 500 mg Capsule Take 1 capsule by mouth 3 times daily for 7 days. 21 capsule 01/09/2016 01/16/2016 oxyCODONE (ROXICODONE) 5 mg Tablet Take 1-2 tablets by mouth every 4 hours as needed for Pain. No driving, no alcohol 20 tablet 01/09/2016 01/15/2016 documented as of this encounter Plan of Treatment Not on file documented as of this encounter Procedures Procedure Name Priority Date/Time Associated Diagnosis Comments FILM LIBRARY STORAGE ONLY DX HAND STAT 01/08/2016 12:00 AM EDT Pain documented in this encounter Results * Film Library- Storage only DX Hand (01/08/2016 12:00 AM EDT) Narrative User, Generic Transmittal - 01/08/2016 9:53 PM EDT This exam is for storage only and is auto-finalizing. Pawan Barajas MD IM FILM LIBRARY ORD ERABLES documented in this encounter Visit Diagnoses Not on filedocumented in this encounter
--- OUTSIDE RECORDS SUMMARY | 2024-06-23 16:48 | XMS_ITS | Encounter Summary ---
Author Organization [facility] Address [facility] [place] [address] Care Team Providers Care Medical Staff Manager Name Role Phone Unavailable Primary Care Provider Unavailabl e Reason for Visit * Reason Comments Finger Injury right 2nd and third fingers from [place] Encounter Details Date Type Department Care Team (Late st Contact Info) Description 01/08/2016 11:55 PM EDT - 01/09/2016 3:44 AM EDT Emergency Emergency Department [facility] [place] [address] Claire Blanco MD [facility] [place] [address] Pain; Fingertip amputation, initial encounter Discharge Disposition: Home Social History Tobacco Use Types Packs/Day Years Used Date Smoking Tobacco: Never Assessed Sex and Gender Information Value Date Recorded Sex Assigned at Not on file Gender Identity Not on file Sexual Orientation Not on file documented as of this encounter Last Filed Vital Signs Vital Sign Reading Time Taken Comments Blood Pressure 157/96 01/09/2016 3:44 AM EDT Pulse 56 01/09/2016 3:44 AM EDT Temperature 36.7 ??C (98.1 ??F) 01/09/2016 3:44 AM ED T Respiratory Rate 14 01/09/2016 3:44 AM EDT Oxygen Saturation 97% 01/09/2016 3:44 AM EDT Inhaled Oxygen Concentration - - Weight 83.9 kg (185 lb) 01/08/2016 11:59 PM EDT Height 180.3 cm (5' 11) 01/08/2016 11:59 PM EDT Body Mass Index 25.8 01/08/2016 11:59 PM EDT documented in this encounter Discharge Instructions * Patient Instructions* O'Uintah, Hoang M, MD - 01/09/2016 3:12 AM EDT Hand Discharge Instructions Keep splint on and dry at all times until your follow-up appointment. For fingers not included in the splint: OK to move your fingers. Do not use your fingers. Keep hand elevated at all times until your follow-up appointment. Take Ibuprofen or Aleve around the clock for pain relief. Take narcotic pain medication as needed for breakthrough pain. Take your antibiotics as directed until your course is complete. Call our office if: ??? Fingers in splint are white, numb or cold. ??? You have signs of infection o A temperature over 100.4 F. o Redness of the incision lines that is beginning to spread away from the incision. o Yellow pus-like or foul smelling drainage from the incision or drain site. o Increase pain/discomfort that is not relieved by your pain medication. To make an appointment or for questions about scheduling, please contact our administrative officesat [phone]. Please follow-up next week with Dr Bates or Essence Carrion in Plastic Surgery clinic. For clinical questions, please call our nurses at [phone] Both offices are open Wednesday thru Wednesday 8a - 5p. With emergencies after hours, call the hospital seam rubbing machine operator at [phone] and ask for the Plastic Surgery Resident superintendent compressor stations. You may remove dressing in 2 days and change as directed: Xeroform over incision and gauze overlying that documented in this encounter Medications at Time of Discharge [...] 01/09/2016 01/15/2016 documented as of this encounter H&P Notes * Hoang Pal MD - 01/09/2016 12:28 AM EDT Images from the original note were not included. PLASTIC SURGERY HAND CONSULT NOTE Referring: [facility] CC: Hand Injury HPI: Yasmeen Calix is a 40 y.o. old male history of GERD who sustained a supervisor plastic sheets injury today at 7PM. he went to the the ED and was found to have hand injuries including a distal amputation of digits 2 and 3. He presented to an OSH where an XRay was performed showing distal phalangeal fractures and he was transferred to [facility] for further care. He denies numbness, tingling, and weakness of the hand and minimal pain on initial evaluation. 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 MEDS: Omeprazole ALL: No Known Allergies FH: Non-contributory SH: Social History Social History ??? Marital status: Single Spouse name: N/A ??? Number of children: N/A ??? Years of education: N/A Occupational History ??? Not on file. Social History Main Topics ??? Smoking status: Not on file ??? Smokeless tobacco: Not on file ??? Alcohol use Not on file ??? Drug use: Not on file ??? Sexual activity: Not on file Other Topics Concern ??? Not on file Social History Narrative ROS: As per HPI EXAMINATION: Temp: [36.6 ??C (97.9 ??F)] Heart Rate: [66] Resp: [16] BP: (143)/(72) NAD Non-labored Reg rate No CCE, moves all 4 extremities AO RIGHT HAND: Inspection/Soft Tissue: soft tissue defect at distal 3rd and 4th digit, nail bed intact but nail has been avulsed and shorn off except for 2-3 mm distal to bed Palpation: No pain along fingers/palm/wrist except TTP distal 3rd and 4th digit Vascular: Palpable radial pulse, good cap refill Sensation: Median/Radial/Ulnar nerves intact Motor: Radial (EPL)/Median (APB)/Ulnar(DI)/AIN (OK sign)/PIN (Thumbs up) intact ROM: Normal ROM PIP/MCP/Wrist , no scissoring, normal cascade LABS: No results found for this or any previous visit (from the past 24 hour(s)). IMAGING: XR Right Hand: Procedure: The risks (bleeding, infection, damage to nearby structures, hematoma, seroma, need for further procedure, recurrence, wound healing problems, asymmetry, poor cosmesis, pain, scarring), benefits, andalternatives were discussed with the patient. Consent obtained from the patient. A timeout was performed, which confirmed the patients name, MRN, and procedure to be performed. 10 ml of 1% lidocaine was injected to anesthetize the 3rd and 4th digit as a digital nerve block. he was prepped and draped in the usual sterile fashion. The wound was copiously irrigated. The wound was about a complete avulsion of the nail and bed of both digits with exposed bone underlying both open wounds cm long located at the distal phalanx of the 3rd and 4th digit. Viable tissue was visible at the base of the wound as well as distal phalanx. Any devitalized tissue was sharply excised using scissors to healthy bleeding tissue. A Rongeur was used to debride back bone to allow healthy tissue coverage. The digital nerves bilaterally were dissected back to not be involved in the wound closure. The wound was then closed using 4-0 Chromic Gut suture in an interuppted fashion after removal of the involved nail bed. The wound was covered with Xeroform and gauze. The patient tolerated the procedure well. All needle and sponges were accounted for at the end of the case. ASSESSMENT: Yasmeen Calix is a 40 y.o. y/o male s/p hand trauma after a supervisor plastic sheets injury with hand injuries including a distal amputation of the 3rd and 4th digits of the right hand. RECOMMENDATION: 1. Bedside revision amputation performed at bedside, patient tolerated well. Provided adequate bonecoverage with healthy tissue. 2. Pain control with Oxycodone 3. Keep right hand elevated 4. Tetanus up to date 5. IV antibiotics in ED (Ancef and Gentamicin). Patient prescribed Keflex for 7 days on discharge. 6. Follow up within 7 days in the plastic surgery clinic (ext [id number]) The patient was discussed with attending, Dr. Bates, who agrees with the above assessment and plan. Hoang Pal MD General Surgery Resident, PGY-4 documented in this encounter ED Notes * Vasiliy Peguero MD - 01/08/2016 11:59 PM EDT Emergency Department Yasmeen Calix is a 40 y.o. male who presents to [facility] with middle finger and ring finger tip amputation. History of Present Illness / Review of Systems The patient is resting comfortably in the bed. Physical Exam: I reviewed the patient???s vitals as recorded in the electronic medical record and ED nursing notes. The patient was non-toxic appearing and in no obvious distress. Assessment/Plan: This 40 y.o. male was transferred from an outside hospital emergency department to receive specialty care provided by the plastic surgery service for his fingertip amputations. I discussed the case with resident/fellow of the accepting service. The patient was deemed to be stable and not requiring s ignificant involvement from the attending emergency physician at this time. The accepting service has assumed further care of the patient. Please see their notes for any further clinical details. Vasiliy Peguero MD Resident 01/09/16 0636 Vasiliy Peguero MD Resident 01/09/16 0636 Associated attestation - Claire Blanco MD - 01/09/2016 3:23 PM EDT ED ATTENDING ATTESTATION NOTE The patient was seen in conjunction with Dr. Peguero, the resident physician. I have independently performed the scott portions of the history and physical exam. I have reviewed the nursing notes, vitalsigns, and all diagnostic studies personally including labs, imaging studies and EKGs. I have discussed the details of the case with the resident and agree with the assessment and plan as described in the resident note above unless noted otherwise below. Brief Summary: R hand dominant male presents with concern of distal finger tip amputations of middle and ring finger after being injured by lawnmower. Pt was given tetanus at osh but no abx. Hand surgery was consulted for repair Final Assessment: Finger tip amputation documented in this encounter Miscellaneous Notes * ED Triage - Negin Oliver RN - 01/09/2016 12:03 AM EDT Patient states was mowing the lawn, got clogged then tried to scoop the grass out. Hand got sucked in blade turned on and cut 2nd and 3rd fingers. Hand dressed, bleeding controlled. Patient states itdoesn't really hurt. Respirations even and unlabored. Skin pwd Denies chest pain, sob, n/v/d documented in this encounter Plan of Treatment [...] only and is auto-finalizing. Pawan Barajas MD [facility] FILM LIBRARY ORD ERABLES documented in this encounter Visit Diagnoses Diagnosis Pain Generalized pain Fingertip amputation, initial encounter documented in this encounter Administered Medications Inactive Administered Medications - up to 3 most recent administrations Medication Order MAR Action Action Date Dose Rate Site ceFAZolin (ANCEF) 1g in dextrose 5% 50mL 1,000 mg (1 g), Intravenous, EVERY 8 HOURS, First dose on Olga 01/09/16 at 0038, Until Discontinued, Administer over 30 Minutes, Indication for (Active or Suspected): Prophylaxis Given 01/09/2016 12:44 AM EDT 1,000 mg 100 mL/hr gentamicin 80 mg in sodium chloride 0.9% 100mL 80 mg, Intravenous, EVERY 24 HOURS, First dose on Olga 01/09/16 at 0130, Until Discontinued, Administer over 60 Minutes, This medication may have an associated drug lab level. Please check for lab orders. Warning Vesicant/Irritant Medication , Indication for (Active or Suspected): Prophylaxis Given 01/09/2016 2:39 AM EDT 80 mg 100 mL/hr Gentamicin Level - MAR Order Reminder NOT APPLICABLE, PER PHARMACY, Other, Starting on Olga 01/09/16 at 0036, Until Olga 01/09/16 at 0544, This alert will be scheduled by a pharmacist after order placement. This order is a reminder to nursing staff to release and draw the PRN drug level at the specified time. It may be necessary to contact phlebotomy 60 minutes prior to the scheduled due time to assure a timely blood draw. oxyCODONE (ROXICODONE) immediate release tablet 5 mg 5 mg, Oral, EVERY 4 HOURS PRN, Starting on Olga 01/09/16 at 0311, Until Olga 01/09/16 at 0544, Pain, Routine Given 01/09/2016 3:28 AM EDT 5 mg documented in this encounter Active and Recently Administered Medications Times are shown in EDT. Scheduled Medication Order 01/07/2016 01/08/2016 01/09/2016 ceFAZolin (ANCEF) 1g in dextrose 5% 50mL 1,000 mg (1 g), Intravenous, EVERY 8 HOURS, First dose on Olga 01/09/16 at 0038, Until Discontinued, Administer over 30 Minutes, Indication for (Active or Suspected): Prophylaxis 0044 (Given - Provid er: David Gamble RN) gentamicin 80 mg in sodium chloride 0.9% 100mL(Linked Group 1) 80 mg, Intravenous, EVERY 24 HOURS, First dose on Olga 01/09/16 at 0130, Until Discontinued, Administer over 60 Minutes, This medication may have an associated drug lab level. Please check for lab orders. Warning Vesicant/Irritant Medication , Indication for (Active or Suspected): Prophylaxis 0239 (Given - Provid er: David Gamble RN) PRN Medication Order 01/07/2016 01/08/2016 01/09/2016 Gentamicin Level - MAR Order Reminder(Linked Group 1) NOT APPLICABLE, PER PHARMACY, Other, Starting on Olga 01/09/16 at 0036, Until Olga 01/09/16 at 0544, This alert will be scheduled by a pharmacist after order placement. This order is a reminder to nursing staff to release and draw the PRN drug level at the specified time. It may be necessary to contact phlebotomy 60 minutes prior to the scheduled due time to assure a timely blood draw. oxyCODONE (ROXICODONE) immediate release tablet 5 mg 5 mg, Oral, EVERY 4 HOURS PRN, Starting on Olga 01/09/16 at 0311, Until Olga 01/09/16 at 0544, Pain, Routine 0328 (Given - Provid er: David Gamble RN) Linked Groups Order Group 1: gentamicin 80 mg in sodium chloride 0.9% 100mLJump to med 80 mg, Intravenous, EVERY 24 HOURS, First dose on Olga 01/09/16 at 0130, Until Discontinued, Administer over 60 Minutes, This medication may have an associated drug lab level. Please check for lab orders. Warning Vesicant/Irritant Medication , Indication for (Active or Suspected): Prophylaxis And Gentamicin level, trough (CANCELED) New collection, Timed, PRN, Starting on Olga 01/09/16 at 0036, Until Specified, For 1 occurrence And Gentamicin level, peak (CANCELED) New collection, Timed, PRN, Starting on Olga 01/09/16 at 0036, Until Specified, For 1 occurrence And Gentamicin Level - MAR Order ReminderJump to med NOT APPLICABLE, PER PHARMACY, Other, Starting on Olga 01/09/16 at 0036, Until Olga 01/09/16 at 0544, This alert will be scheduled by a pharmacist after order placement. This order is a reminder to nursing staff to release and draw the PRN drug level at the specified time. It may be necessary to contact phlebotomy 60 minutes prior to the scheduled due time to assure a timely blood draw. documented in this encounter
--- OUTSIDE RECORDS SUMMARY | 2024-06-23 16:48 | XMS_ITS | Clinical Summary ---
Author Organization [facility] [place] [address] Care Team Providers Care Software Controls Engineer Name Role Phone Unavailable Primary Care Provider Unavailabl e Allergies No known active allergies Medications Medication Sig Dispensed Refills Start Date End Date Status omeprazole (PRILOSEC) 20 mg Capsule, Delayed Release(E.C.) Take 20 mg by mouth daily. Active Social History Tobacco Use Types Packs/Day Years Used Date Smoking Tobacco: Every Day Cigarettes Sex and Gender Information Value Date Recorded Sex Assigned at Not on file Gender Identity Not on file Sexual Orientation Not on file Last Filed Vital Signs Vital Sign Reading [...] Mass Index 25.8 01/08/2016 11:59 PM EDT Plan of Treatment Health Maintenance Due Date Last Done Comments CT Colonography 1977 Colonoscopy 1977 Colorectal Cancer Screening 1977 FIT DNA 1977 FIT 1977 Sigmoidoscopy (10 year) with FIT yearly 1977 Sigmoidoscopy 1977 HIV screen 1995 Hepatitis C Screening 1995 Lipid Screening 1995 Hepatitis B vaccine (0-59 yrs) (1) 1996 Tetanus/Diphtheria/Pertussis Vaccines (1 - Tdap) 07/04 Covid-19 Vaccine (1 - season) 2024 Influenza (Flu) vaccine (1 o f 1 - Influenza standard series) 03/05/2024
--- OUTSIDE RECORDS SUMMARY | 2024-06-23 16:48 | XMS_ITS | Encounter Summary ---
Author Organization [facility] Address [address] [place] [address] Care Team Providers Care Hydrogeologist Name Role Phone Unavailable Primary Care Provider Unavailabl e Encounter Details Date Type Department Care Team (Late st Contact Info) Description 08/05/2020 Lab Requisition [facility] Pathology & Laboratory Medicine - [facility] [address] [place] [address] Outr Resulting Lab, Provider Social History Tobacco Use Types Packs/Day Years [...] Procedure Name Priority Date/Time Associated Diagnosis Comments ZZCOVID-19 TEST [facility] PCR Today 08/05/2020 10:30 EST COVID-19 TESTING Routine 08/05/2020 10:3 0 EST documented in this encounter Results * COVID-19 TEST [facility] PCR (08/05/2020 10:30 EST) Swab ENTIRE NASOPHARYNX / Unknown 08/05/2020 10:30 EST 08/05/2020 17:01 EST us Provider Outr Resulting Lab MICROBIOLOGY - GENER AL ORDERABLES Final Result [facility] [address] [place] [address] * COVID-19 TESTING (08/05/2020 10:30 EST) COVID-19 rt-PCR Result Negative Negative 08/06/2020 12:29 EST [facility] Comment: This test has not been FDA cleared or approved. This test has been authorized by FDA under an EUA for use by authorized laboratories. This test has been authorized only for detection of nucleic acid from 2019-nCoV, not for any other viruses or pathogens. This test is only authorized for the duration of the declaration that circumstances exist justifying the authorization of emergency use of in vitro diagnostic tests for detection and/or diagnosis of 2019-nCoV under section 564(b)(1) of Act, 21 U.S.C ?? 360bbb-3(b) (1), unless the authorization is terminated or revoked sooner. Negative results do not preclude 2019-nCoV infection and should not be used as the sole basis for treatment or other patient management decisions. Negative results must be combined with clinical observations, patient history, and epidemiological information. This test was developed and its performance characteristics determined by [facility]. It has not been cleared or approved by the US Food and Drug Administration. FDA does not require this test to go through premarket FDA review. This test is used for clinical purposes. It should not be regarded as investigational or for research. This laboratory is certified under the Clinical Laboratory Improvement Amendments (CLIA) as qualified to perform high complexity clinical laboratory testing. This test is based on the [facility] COVID-19 Emergency Use Authorization (EUA) assay, with minor modification as defined by the FDA Performed on the ShowUhowo 7 Flex RT-PCR System. Performing Lab [facility] 08/06/2020 12:29 EST [facility] Swab 08/05/2020 10:3 0 EST 08/05/2020 17:01 EST us Provider Outr Resulting Lab MICROBIOLOGY - GENER AL ORDERABLES Final Result [facility] [address] [place] [address] documented in this encounter Visit Diagnoses Not on filedocumented in this encounter
--- OUTSIDE RECORDS SUMMARY | 2024-06-23 16:48 | XMS_ITS | Encounter Summary ---
Author Organization [facility] [place] [address] Care Team Providers Care Collision Estimator Name Role Phone Unavailable Primary Care Provider Unavailabl e Encounter Details Date Type Department Care Team (Late st Contact Info) Description 08/22/2018 Ancillary Procedure Radiology Library at [facility] [place] [id number] Andreea Burns APRN [address] [place] [address] Social History Tobacco Use Types Packs/Day Years [...] Associated Diagnosis Comments FILM LIBRARY STORAGE ONLY MR HEAD Routine 08/22/2018 12:00 AM EST documented in this encounter Results * Film Library- Storage Only MR Head (08/22/2018 12:00 AM EST) Narrative ARIELLE - 08/30/2018 2:06 PM EST This exam is for storage only and is auto-finalizing. Andreea Burns APRN IMG FILM LIBRARY ORD ERABLES [place]ELLE [place] documented in this encounter Visit Diagnoses Not on filedocumented in this encounter
--- OUTSIDE RECORDS SUMMARY | 2024-06-23 16:48 | XMS_ITS | Encounter Summary ---
Author Organization [facility] Address [facility] [place] [address] Care Team Providers Care Sheet Writer Name Role Phone Unavailable Primary Care Provider Unavailabl e Reason for Visit * Reason Comments Follow-up partial tip amputati on long and ring finger Encounter Details Date Type Department Care Team (Late st Contact Info) Description 03/11/2016 9:45 AM EDT Office Visit Plastic Surgery at [facility] [address] [place] [address] Scout Polk MD [facility] [place] [address] Finger amputation, traumatic, subsequent encounter Social History Tobacco Use Types Packs/Day Years Used Date Smoking Tobacco: Never Assessed Sex and Gender Information Value Date Recorded Sex Assigned at Not on file Gender Identity Not on file Sexual Orientation Not on file documented as of this encounter Progress Notes * Scout Polk MD - 03/11/2016 9:45 AM EDT Plastic Surgery Post Op Note Reason for visit: F/U status post procedure Date of injury: 01/09/16 Injury(s): Distal amputation of the index and ring finger digits of the right hand s/p lawnmower injury. Complications: None reported Pain: 0/10 HPI: Pt returns in follow up s/p distal amputation of index and ring fingers following a lawnmower injury. He reports he has been well, his fingertips are tingly. Examination: Patient is alert, conversant, comfortable, ambulating Right long and ring finger tip partial amputation, decreased swelling, minimal scabbing at tip, no bone exposed No signs of infection Impression: Yasmeen Calix is a 40 y.o. male who was seen today for follow-up after the above injury.Skin flaps continue to make good healing progress. We discussed his work status, he may return to work beginning Mar 16 but should avoid heavy grasping with right hand. Plan: 1. Follow up 6-8 weeks 2. Work letter given. I, Nicci Davey, am acting as scribe [...]
--- OUTSIDE RECORDS SUMMARY | 2024-06-23 16:48 | XMS_ITS | Clinical Summary ---
Author Organization [facility] Address [address] [place] [address] Care Team Providers Care Hr Receptionist Name Role Phone Unavailable Primary Care Provider [...] Orientation Not on file Plan of Treatment Health Maintenance Due Date Last Done Comments Hepatitis C Screen 1977 Hepatitis B Vaccine (1 of 3 - 19+ 3-dose series) 07/04 COVID-19 Vaccine ( season) 2024
--- OUTSIDE RECORDS SUMMARY | 2024-06-23 16:48 | XMS_ITS | Encounter Summary ---
Author Organization [facility] Address [address] [place] [address] Care Team Providers Care Yard Person Name Role Phone Unavailable Primary Care Provider Unavailabl e Encounter Details Date Type Department Care Team (Late st Contact Info) Description 08/09/2020 Lab Requisition [facility] Pathology & Laboratory Medicine - [facility] [address] [place] [address] Outr Resulting Lab, Provider Social History Tobacco [...] Comments ZZCOVID-19 TEST [facility] PCR Today 08/09/2020 10:50 EST COVID-19 TESTING Routine 08/09/2020 10:5 0 EST documented in this encounter Results * COVID-19 TEST [facility] PCR (08/09/2020 10:50 EST) Swab ENTIRE NASOPHARYNX / Unknown 08/09/2020 10:50 EST 08/09/2020 15:43 EST us Provider Outr Resulting Lab MICROBIOLOGY - GENER AL ORDERABLES Final Result [facility] [address] [place] [address] * COVID-19 TESTING (08/09/2020 10:50 EST) COVID-19 rt-PCR Result Negative Negative 08/10/2020 14:31 EST [facility] Comment: This test has not [...] developed and its performance characteristics determined by [facility]. It has not been cleared or approved [...] testing. This test is based on the [facility] COVID-19 Emergency Use Authorization (EUA) assay, with minor modification as defined by the FDA Performed on the Nanameueo 7 Flex RT-PCR System. Performing Lab [facility] Lab 08/10/2020 14:31 EST [facility] Swab 08/09/2020 10:5 0 EST 08/09/2020 15:43 EST us Provider Outr Resulting Lab MICROBIOLOGY - GENER AL ORDERABLES Final Result [facility] [address] [place] [address] documented in this encounter Visit Diagnoses Not on filedocumented in this encounter
--- OUTSIDE RECORDS SUMMARY | 2024-06-23 16:48 | XMS_ITS | Encounter Summary ---
[facility] [place] [address] Care Team Providers Care Cable Swager Name Role Phone Unavailable Primary Care Provider Unavailabl e Reason for Visit * Reason Comments Follow-up partial amp right lo ng and ring Encounter Details Date Type Department Care Team (Late st Contact Info) Description 04/22/2016 9:15 AM EDT Office Visit Plastic Surgery at [facility] [address] [place] [address] Scout La MD [facility] [place] [address] Finger amputation, traumatic, subsequent encounter Social History Tobacco Use Types Packs/Day Years Used Date Smoking Tobacco: Every Day Cigarettes Sex and Gender Information Value Date Recorded Sex Assigned at Not on file Gender Identity Not on file Sexual Orientation Not on file documented as of this encounter Patient Instructions * Patient Instructions* Tess Krueger - 04/22/2016 9:15 AM EDT Plan: 1. Follow up PRN 2. Ok to work with no restrictions. 3. Keep nail trimmed documented in this encounter Progress Notes * Scout La MD - 04/22/2016 9:15 AM EDT Plastic Surgery Post Op Note Reason for visit: F/U status post procedure Date of injury: 01/09/16 Injury(s): Distal amputation of the index and ring finger digits of the right hand s/p lawnmower injury. Complications: None reported Pain: 0/10 HPI: Pt returns in follow up s/p distal amputation of index and ring fingers following a lawnmower injury. Would like a RTW note. Examination: Patient is alert, conversant, comfortable, ambulating Right long and ring finger tip partial amputation sites now healed, No signs of infection, good finger ROM Impression: Yasmeen Calix is a 40 y.o. male who was seen today for follow-up after the above injury.Skin flaps are now well healed. I advised that his finger tip should continue to round out with time. Discussed cold sensitivity. Plan: 1. Follow up PRN 2. Ok to work with no restrictions. 3. Keep nail trimmed I, Tess Krueger, am acting as scribe [...]
--- OUTSIDE RECORDS SUMMARY | 2024-06-23 16:48 | XMS_ITS | Encounter Summary ---
Author Organization [facility] [place] [id number] Care Team Providers Care Big Data Lead Name Role Phone Unavailable Primary Care Provider Unavailabl e Encounter Details Date Type Department Care Team (Latest Contact Info) Description 08/31/2018 2:05 PM EST Ancillary Procedure Radiology Library at [facility] [place] [id number] Andreea Burns APRN [address] [place] [address] Dizziness and giddiness Social History Tobacco Use Types Packs/Day Years Used Date Smoking Tobacco: Every Day Cigarettes Sex and Gender Information Value Date Recorded Sex Assigned at Not on file Gender Identity Not on file Sexual Orientation Not on file documented as of this encounter Plan of Treatment Not on file documented as of this encounter Procedures Procedure Name Priority Date/Time Associated Diagnosis Comments REQUEST FOR 2ND READ MR HEAD Routine 08/31/2018 1:52 PM EST Dizziness and giddiness documented in this encounter Results * Request for 2nd read MR Head (08/31/2018 1:52 PM EST) Anatomical Region Laterality Modality SO Impressions 08/31/2018 2:16 PM EST 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 Thank you for letting us participate in the care of this patient. For questions regarding this report, please contact the number below. ? Electronically signed by: Matti Coffey [facility] ([phone]), at 08/31/2018 2:16 PM Narrative 08/31/2018 2:16 PM EST EXAMINATION: REQUEST FOR 2ND READ MR HEAD CLINICAL HISTORY: DIZZINESS; To determine if further imaging is necessary; What Modality is the exam? MRI; Body Part (please add comments as necessary): Head; I believe a reinterpretation of this exam may alter care of Patient. Yes TECHNIQUE: MRA acquired of the head utilizing time flight imaging. 3-D reformats have been created. COMPARISON: CT 05/02/2018 FINDINGS: Signal abnormality projecting within the posterior aspect of the suprasellar cistern. The basilar apex demonstrates fat attenuation and calcification on the prior CT examination. Normal intracranial vasculature. Procedure Note Matti Coffey MD - 08/31/2018 EXAMINATION: REQUEST FOR 2ND READ MR HEAD CLINICAL HISTORY: DIZZINESS; To determine if further imaging is necessary;What Modality is the exam? MRI; Body Part (please add comments as necessary):Head; I believe a reinterpretation of this exam may alter care of Patient. Yes TECHNIQUE: MRA acquired of the head utilizing time flight imaging. 3-D reformats havebeen created. COMPARISON: CT 05/02/2018 FINDINGS: Signal abnormality projecting within the posterior aspect of thesuprasellar cistern. The basilar apex demonstrates fat attenuation and calcificationon the prior CT examination. Normal intracranial vasculature. 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 Thank you for letting us participate in the care of this patient. Forquestions regarding this report, please contact the number below. Electronically signed by: CYNDI Rosado [facility]([phone]), at 08/31/2018 2:16 PM Andreea Burns APRN IMG OUTSIDE INTERPRE TATION ORDERABLES documented in this encounter Visit Diagnoses Diagnosis Dizziness and giddiness documented in this encounter
== END 2024-06-23 16:47 | disposition home or self-care (01) ==
LOC: NCHCN 16:46
PROVIDERS: PCP Nurse Practitioner Family; Visit Provider Nurse Practitioner Family
DX: I10 Essential (primary) hypertension (principal); E78.5 Hyperlipidemia, unspecified; F10.10 Alcohol abuse, uncomplicated
CPT/HCPCS: 80053; 80061; 85027; 82607; 82746; 83735